=== PATIENT | female | born 1965 | race Caucasian/White ===

== ENCOUNTER 2017-06-19 16:26 | Inpatient (IN) | payer OTHER ==
[2017-06-19 17:17] VITALS: BMI 18.3
--- NOTE | 2017-06-19 20:55 | HP ---
CIWA Score - CIWA Score Nausea/Vomitin Muscle Tremors: 7-Severe,w/o Arm Extended Anxiety: 5 Agitation: 4-Moderately Restless Paroxysmal Sweats: 3 Orientation: 0-Oriented Tacttile Disturbances: 3-Moderate Itch/Numb/Burn Auditory Disturbances: 0-None Visual Disturbances: 0-None Headache: 0-None Present CIWA-Ar Total Score: 25 Admission ROS BHS - HPI Chief Complaint: C/O WITHDRAWAL SX'S. SEEKING DETOX FOR ALCOHOL DEPENDENCE Allergies/Adverse Reactions: Allergies Allergy/AdvReac Type Severity Reaction Status Date / Time banana Allergy Verified 06/19/17 19:02 erythromycin base Allergy Verified 06/19/17 19:02 History of Present Illness: 51 Y.O. FEMALE WITH LONG HX/O ALCOHOLISM SEEKING ADMISSION FOR DETOX TXMENT. THIS IS CLIENTS FIRST TIME HERE. REFERRED BY [facility]PS. 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 Exam Limitations: No Limitations - Ebola screening Have you traveled outside of the country in the last 21 days: No Have you had contact with anyone from an Ebola affected area: No Have you been sick,other than usual withdrawal symptoms: No Do you have a fever: No - Review of Systems Constitutional: Chills, Loss of Appetite, Night Sweats EENT: reports: Tinnitus, Sinus Pressure, Throat Pain (SORE) Respiratory: reports: No Symptoms reported Cardiac: reports: No Symptoms Reported GI: reports: Diarrhea, Poor Appetite, Poor Fluid Intake : reports: No Symptoms Reported Musculoskeletal: reports: No Symptoms Reported Integumentary: reports: No Symptoms Reported Neuro: reports: No Symptoms reported Endocrine: reports: No Symptoms Reported Hematology: reports: No Symptoms Reported Psychiatric: reports: No Sypmtoms Reported Other Systems: Reviewed and Negative Patient History - Patient Medical History Hx Anemia: No Hx Asthma: No Hx Chronic Obstructive Pulmonary Disease (COPD): Yes Hx Cancer: No Hx Cardiac Disorders: No Hx Congestive Heart Failure: No Hx Hypertension: No Hx Hypercholesterolemia: No Hx Pacemaker: No HX Cerebrovascular Accident: No Hx Seizures: No Hx Dementia: No Hx Diabetes: No Hx Gastrointestinal Disorders: No Hx Liver Disease: No Hx Genitourinary Disorders: No Hx Sexually Transmitted Disorders: No Hx Renal Disease (ESRD): No Hx Thyroid Disease: No Hx Human Immunodeficiency Virus (HIV): No Hx Hepatitis C: No Hx Depression: No Hx Suicide Attempt: No Hx Bipolar Disorder: No Hx Schizophrenia: No Other Medical History: DENIES - Patient Surgical History Past Surgical History: No Hx Neurologic Surgery: No Hx Cataract Extraction: No Hx Cardiac Surgery: No Hx Lung Surgery: No Hx Breast Surgery: No Hx Breast Biopsy: No Hx Abdominal Surgery: No Hx Appendectomy: No Hx Cholecystectomy: No Hx Genitourinary Surgery: No Hx Section: No Hx Orthopedic Surgery: Yes (R ACL REPAIR; R BICEP REPAIR) Anesthesia Reaction: No - PPD History Previous Implant?: Yes Documented Results: Negative w/o proof Implanted On Prior [facility] Admission?: No PPD to be Administered?: Yes - Reproductive History Patient is a Female of Child Bearing Age (11 -55 yrs old): Yes Last Menstrual Period: 05/31/17 Patient : No ([facility] [place]) - Smoking Cessation Smoking history: Current every day smoker Have you smoked in the past 12 months: Yes Aproximately how many cigarettes per day: 10 Cigars Per Day: 0 Hx Chewing Tobacco Use: No Initiated information on smoking cessation: No 'Breaking Loose' booklet given: 06/19/17 - Substance & Tx. History Hx Alcohol Use: Yes Hx Substance Use: No Substance Use Type: Alcohol Hx Substance Use Treatment: Yes ([facility]) - Substances Abused Alcohol Route: Oral Frequency: Daily Amount used: WINE- 1 LITRE Age of first use: 13 Date of Last Use: 06/19/17 Family Disease History - Family Disease History Family History: Unable to Obtain (ADOPTED) Admission Physical Exam BHS - Vital Signs Vital Signs: Vital Signs - 24 hr 06/19/17 06/19/17 06:00 17:14 Temperature 99.3 F 97.2 F L Pulse Rate 70 130 H Respiratory 18 18 Rate Blood Pressure 100/58 100/60 - Physical General Appearance: Yes: Appropriately Dressed, Mild Distress, Tremorous HEENTM: Yes: EOMI, Normocephalic, KARLOS, Pharynx Normal Respiratory: Yes: Chest Non-Tender, Lungs Clear, Normal Breath Sounds, No Respiratory Distress, No Accessory Muscle Use Neck: Yes: No masses,lesions,Nodules, Supple, Trachea in good position Breast: Yes: Breast Exam Deferred Cardiology: Yes: Regular Rhythm, S1, S2, Tachycardia Abdominal: Yes: Normal Bowel Sounds, Non Tender, Flat, Soft Genitourinary: Yes: Within Normal Limits Back: Yes: Normal Inspection Musculoskeletal: Yes: full range of Motion, Gait Steady Extremities: Yes: Normal Range of Motion, Non-Tender, Tremors Neurological: Yes: recreation programmer II-XII NML intact, Fully Oriented, Alert, Motor Strength 5/5 Integumentary: Yes: Normal Color, Dry, Warm Lymphatic: Yes: Within Normal Limits - Diagnostic (1) Alcohol dependence with uncomplicated withdrawal Current Visit: Yes Status: Chronic (2) Nicotine dependence Current Visit: Yes Status: Chronic Qualifiers: Nicotine product type: cigarettes Substance use status: uncomplicated Qualified Code(s): F17.210 - Nicotine dependence, cigarettes, uncomplicated (3) COPD (chronic obstructive pulmonary disease) Current Visit: Yes Status: Chronic Qualifiers: COPD type: unspecified COPD Qualified Code(s): J44.9 - Chronic obstructive pulmonary disease, unspecified Cleared for Admission BHS - Detox or Rehab [facility] Level of Care: Medically Managed Detox Regimen/Protocol: Librium [facility] Breath Alcohol Content Breath Alcohol Content: 0.177 Urine Pregancy Test - Result Urine Test Results: Negative- NO Line Present Urine Drug Screen - Results Drug Screen Negative: Yes
[2017-06-19] MEDS ORDERED: IBUPROFEN 400 MG TABLET (FP) PO PRN (20:58)
[2017-06-19] MEDS ORDERED: LOPERAMIDE HCL 2 MG CAPSULE PO PRN (20:58)
[2017-06-19] MEDS ORDERED: MENTHOL/PHENOL 1 EACH UD MM PRN (20:58)
[2017-06-19] MEDS ORDERED: hydrOXYzine PAMOATE 50 MG CAPSULE (FP) PO PRN (20:58)
[2017-06-19] MEDS ORDERED: ACETAMINOPHEN 325 MG TABLET (FP) PO PRN (20:58)
[2017-06-19] MEDS ORDERED: MAG HYDROX/AL HYDROX/SIMETH 30 ML UNIT-DOSE CUP PO PRN (20:58)
[2017-06-19] MEDS ORDERED: chlordiazePOXIDE HCL 25 MG CAPSULE PO PRN (20:58)
[2017-06-19] MEDS ORDERED: P-EPHED 60MG/TRIPROLIDI 2.5MG TABLET PO PRN (20:58)
[2017-06-19] MEDS ORDERED: guaiFENesin/D-METHORPHAN HB 10 ML UNIT-DOSE CUPS PO PRN (20:58)
[2017-06-19] MEDS ORDERED: MAGNESIUM CITRATE 300 ML BOTTLE PO PRN (20:58)
[2017-06-19] MEDS ORDERED: NICOTINE POLACRILEX 2 MG GUM BC PRN (20:58)
[2017-06-19] MEDS ORDERED: MAGNESIUM HYDROX 2400MG/30ML ORAL SUSPENSION 30 ML CUP PO PRN (20:58)
[2017-06-19] MEDS ORDERED: THIAMINE HCL 100 MG TABLET (FP) PO SCH (22:00)
[2017-06-19] MEDS: chlordiazePOXIDE HCL 25 MG CAPSULE PO SCH (22:10)
[2017-06-20 01:29] LABS: URINE APPEARANCE CLEAR; URINE BILIRUBIN NEGATIVE (NEGATIVE); URINE BLOOD 2+ (NEGATIVE); URINE COLOR LTYELLOW; URINE GLUCOSE (UA) NEGATIVE (NEGATIVE); URINE KETONE 1+ (NEGATIVE); URINE NITRITE NEGATIVE (NEGATIVE); URINE UROBILINOGEN NEGATIVE mg/dL (0.2-1.0)
[2017-06-20 01:37] LABS: URINE PROTEIN 1+ (NEGATIVE)
[2017-06-20 02:06] LABS: URINE BACTERIA MANY /hpf (NONE SEEN); URINE HYALINE CAST 5 /lpf; URINE MUCUS MODERATE; URINE RBC 9 /hpf (0-3); URINE WBC <1 /hpf (3-5)
[2017-06-20] MEDS: chlordiazePOXIDE HCL 25 MG CAPSULE PO SCH ×3 (05:30→17:15)
--- NOTE | 2017-06-20 09:02 | EKG ---
Test Reason : Blood Pressure : / mmHG Vent. Rate : 105 BPM Atrial Rate : 105 BPM P-R Int : 210 ms QRS Dur : 070 ms QT Int : 352 ms P-R-T Axes : 076 002 070 degrees QTc Int : 465 ms SINUS TACHYCARDIA WITH 1ST DEGREE A-V BLOCK LOW VOLTAGE QRS NONSPECIFIC ST ABNORMALITY ABNORMAL ECG NO PREVIOUS ECGS AVAILABLE Confirmed by ABIMBOLA BUTT MD ([id number]) on 06/20/2017 9:01:48 AM Referred By: Confirmed By:ABIMBOLA BUTT MD
--- NOTE | 2017-06-20 09:59 | PN ---
[facility] CIWA - CIWA Score Nausea/Vomitin-Mild Nausea/No Vomiting Muscle Tremors: 4-Moderate,w/Arms Extend Anxiety: 4-Mod. Anxious/Guarded Agitation: 4-Moderately Restless Paroxysmal Sweats: 3 Orientation: 0-Oriented Tacttile Disturbances: 0-None Auditory Disturbances: 0-None Visual Disturbances: 0-None Headache: 0-None Present CIWA-Ar Total Score: 16 BHS Progress Note (SOAP) Subjective: Tremors,anxiety,sweating,interrupted sleep,restless Objective: 06/20/17 09:56 Vital Signs - 8 hr 06/20/17 06/20/17 06/20/17 03:30 06:00 07:30 Temperature 101.1 F H 99.5 F Pulse Rate 98 H Respiratory 18 18 Rate Blood Pressure 123/58 Laboratory Tests 06/19/17 22:30 Urine Color Ltyellow Urine Appearance Clear Urine pH 6.0 Ur Specific [place] 1.009 Urine Protein 1+ H Urine Glucose (UA) Negative Urine Ketones 1+ H Urine Blood 2+ H Urine Nitrite Negative Urine Bilirubin Negative Urine Urobilinogen Negative Urine WBC (Auto) <1 Urine RBC (Auto) 9 Urine Bacteria Many Hyaline Casts 5 Urine Mucus Moderate labs noted, Temp 101.1 could be related to w/s. U/A noted U/c+s ordered Assessment: 06/20/17 09:58 Withdrawal sx. Plan: Continue detox
[2017-06-20] MEDS ORDERED: PRENATAL VITAMINS W/ FOLIC ACID TABLET (FP) PO SCH (10:00)
[2017-06-20] MEDS ORDERED: NICOTINE 14 MG/24 HOURS TOPICAL PATCH TD SCH (10:00)
[2017-06-20 10:21] LABS: MCH 34.1 pg (25.7-33.7); MCHC 34.2 g/dl (32.0-36.0); MEAN CELL VOLUME 99.6 fl (80-96); MEAN PLT VOLUME 7.9 fl (7.5-11.1); PLATELET COUNT 83 K/MM3 (134-434); RDW 14.3 % (11.6-15.6); WHITE BLOOD COUNT 6.1 K/mm3 (4.0-10.0)
[2017-06-20 10:30] LABS: ALBUMIN 3.9 g/dl (3.4-5.0); ALK PHOS 78 U/L (45-117); ANION GAP 7 (8-16); BILIRUBIN,TOTAL 1.3 mg/dL (0.2-1.0); CALCIUM 8.8 mg/dL (8.5-10.1); CO2 29 mmol/L (21-32); CREATININE 0.8 mg/dL (0.55-1.02); GLUCOSE,RANDOM 125 mg/dL (74-106); SGOT/AST 213 U/L (15-37); SGPT/ALT 172 U/L (12-78); TOT PROT 7.2 g/dl (6.4-8.2)
[2017-06-20 11:06] LABS: URINE LEUK ESTERASE Negative (NEGATIVE)
[2017-06-20] MEDS ORDERED: chlordiazePOXIDE HCL 25 MG CAPSULE PO ONE (14:00)
--- NOTE | 2017-06-20 22:00 | PN ---
TESS Progress Note Note: MET WITH PT. ON THE UNIT. SHE REQUESTED TO LEAVE AMA. SHE WAS EDUCATED ON RISKS OF NOT COMPLETING TREATMENT AND WAS ENCOURAGED TO STAY. SHE VERBALIZED UNDERSTANDING BUT STILL WANTED TO LEAVE. SHE DENIED SI/HI AND STATED SHE DID NOT NEED ANY MEDICATION REFILLS. SHE WAS ENCOURAGED TO SEEK OUTPATIENT TREATMENT. SHE ARRANGED TRANSPORTATION AND STATED HER SON WILL PICK HER UP.
--- NOTE | 2017-06-20 22:05 | DS ---
[facility] Detox Discharge Summary Admission Date: 06/19/17 Discharge Date: 06/20/17 - History Present History: Alcohol Dependence Pertinent Past History: Laboratory Last Values WBC 6.1 K/mm3 (4.0-10.0) 06/20/17 08:20 RBC 3.88 M/mm3 (3.60-5.2) 06/20/17 08:20 Hgb 13.2 GM/dL (10.7-15.3) 06/20/17 08:20 Hct 38.6 % (32.4-45.2) 06/20/17 08:20 MCV 99.6 fl (80-96) H 06/20/17 08:20 MCH 34.1 pg (25.7-33.7) H 06/20/17 08:20 MCHC 34.2 g/dl (32.0-36.0) 06/20/17 08:20 RDW 14.3 % (11.6-15.6) 06/20/17 08:20 Plt Count 83 K/MM3 (134-434) L 06/20/17 08:20 MPV 7.9 fl (7.5-11.1) 06/20/17 08:20 Sodium 134 mmol/L (136-145) L 06/20/17 08:20 Potassium 3.7 mmol/L (3.5-5.1) 06/20/17 08:20 Chloride 98 mmol/L (98-107) 06/20/17 08:20 Carbon Dioxide 29 mmol/L (21-32) 06/20/17 08:20 Anion Gap 7 (8-16) L 06/20/17 08:20 BUN 9 mg/dL (7-18) 06/20/17 08:20 Creatinine 0.8 mg/dL (0.55-1.02) 06/20/17 08:20 Creat Clearance w eGFR > 60 (>60) 06/20/17 08:20 Random Glucose 125 mg/dL (74-106) H 06/20/17 08:20 Calcium 8.8 mg/dL (8.5-10.1) 06/20/17 08:20 Total Bilirubin 1.3 mg/dL (0.2-1.0) H 06/20/17 08:20 AST 213 U/L (15-37) H 06/20/17 08:20 ALT 172 U/L (12-78) H 06/20/17 08:20 Alkaline Phosphatase 78 U/L (45-117) 06/20/17 08:20 Total Protein 7.2 g/dl (6.4-8.2) 06/20/17 08:20 Albumin 3.9 g/dl (3.4-5.0) 06/20/17 08:20 Urine Color Ltyellow 06/19/17 22:30 Urine Appearance Clear 06/19/17 22:30 Urine pH 6.0 (5.0-8.0) 06/19/17 22:30 Ur Specific [place] 1.009 (1.001-1.035) 06/19/17 22:30 Urine Protein 1+ (NEGATIVE) H 06/19/17 22:30 Urine Glucose (UA) Negative (NEGATIVE) 06/19/17 22:30 Urine Ketones 1+ (NEGATIVE) H 06/19/17 22:30 Urine Blood 2+ (NEGATIVE) H 06/19/17 22:30 Urine Nitrite Negative (NEGATIVE) 06/19/17 22:30 Urine Bilirubin Negative (NEGATIVE) 06/19/17 22:30 Urine Urobilinogen Negative mg/dL (0.2-1.0) 06/19/17 22:30 Ur Leukocyte Esterase Negative (NEGATIVE) 06/19/17 22:30 Urine WBC (Auto) <1 /hpf (3-5) 06/19/17 22:30 Urine RBC (Auto) 9 /hpf (0-3) 06/19/17 22:30 Urine Bacteria Many /hpf (NONE SEEN) 06/19/17 22:30 Hyaline Casts 5 /lpf 06/19/17 22:30 Urine Mucus Moderate 06/19/17 22:30 RPR Titer Nonreactive (NONREACTIVE) 06/20/17 08:20 LABS NOTED - Physical Exam Results Vital Signs: Vital Signs Temperature 100.2 F H 06/20/17 17:16 Pulse Rate 90 06/20/17 17:16 Respiratory Rate 18 06/20/17 17:16 Blood Pressure 106/68 06/20/17 17:16 O2 Sat by Pulse Oximetry (%) - Medication Discharge Medications: Ambulatory Orders NK [No Known Home Medication] 06/19/17 - Diagnosis (1) Alcohol dependence with uncomplicated withdrawal Current Visit: Yes Status: Chronic (2) COPD (chronic obstructive pulmonary disease) Current Visit: Yes Status: Chronic Qualifiers: COPD type: unspecified COPD Qualified Code(s): J44.9 - Chronic obstructive pulmonary disease, unspecified (3) Nicotine dependence Current Visit: Yes Status: Chronic Qualifiers: Nicotine product type: cigarettes Substance use status: uncomplicated Qualified Code(s): F17.210 - Nicotine dependence, cigarettes, uncomplicated - AMA Did Patient Leave Against Medical Advice: Yes
[2017-06-20 22:23] VITALS: BP 105/70; PULSE 96; TEMP 98.4
[2017-06-20] MEDS ORDERED: chlordiazePOXIDE HCL 25 MG CAPSULE PO SCH (23:00)
[2017-06-21] MEDS ORDERED: chlordiazePOXIDE 5 MG CAPSULE PO SCH (23:00)
[2017-06-22] MEDS ORDERED: chlordiazePOXIDE HCL 10 MG CAPSULE PO SCH (23:00)
== END 2017-06-20 22:18 | disposition home or self-care (01) | DRG 775 ==
LOC: YASAS 16:26 → Y6N 19:11
PROVIDERS: ADMIT Internal Medicine; ATTEND Internal Medicine
PROC: HZ2ZZZZ Detoxification Services for Substance Abuse Treatment (ICD-10-PCS; principal; 2017-06-19)
DX: F10.230 Alcohol dependence with withdrawal, uncomplicated (principal); F17.210 Nicotine dependence, cigarettes, uncomplicated; J44.9 Chronic obstructive pulmonary disease, unspecified
CPT/HCPCS: 36415; 80053; 81003; 81015; 85027; 86593; 86803; 87086; 93005; 93010